=== PATIENT | female | born 1990 | race Caucasian/White ===

== ENCOUNTER 2017-01-08 10:51 | Emergency (ER) | payer OTHER ==
[2017-01-08 11:04] VITALS: BP 131/78; PULSE 92; O2SAT 97
--- NOTE | 2017-01-08 11:21 | ERPHSYRPT ---
- History of Present Illness Time Seen by Provider: 01/08/17 11:08 Source: patient Exam Limitations: no limitations Patient Subjective Stated Complaint: PT REPORTS FALLING ON SUNDAY-REPORTS LOW RIGHT SIDED BACK PAIN ET LEG PAIN-REPORTS PREVIOUS BACK INJURY Triage Nursing Assessment: PT PINK WARM ET DRY-A & O X 3-NO OBVIOUS INJURY-NO CONTUSIONS OR ABRASIONS Physician History: This is a 26-year-old white female with history of migraines, peripheral neuropathy, fibromyalgia, attention deficit disorder, depression, chronic back pain, cervical cancer, von Willebrand's disease. She arrives with complaint of pain in her back in her right knee after falling 4 days ago. She states she does not have any pain medications and is not taking any. She is not having urinary symptoms she complains of pain in the lateral right knee she also has pain in the right low back. Patient does have a history of chronic back pain. She is not otherwise ill. Past medical history includes migraines, peripheral neuropathy, fibromyalgia, attention deficit disorder, depression, chronic back pain, cervical cancer, von Willebrand's disease Past surgical history includes cholecystectomy, Timing/Duration: day(s) (4 days) Severity: moderate Modifying Factors: Improves With: nothing Associated Symptoms: No nausea, No vomiting, No abdominal pain, No shortness of breath, No heartburn, No diaphoresis, No cough, No chills, No chest pain, No fever, No headaches, No loss of appetite, No malaise, No rash, No syncope, No seizure, No weakness Allergies/Adverse Reactions: ibuprofen Allergy (Mild, Verified 01/08/17 11:04) promethazine HCl [From Phenergan] Allergy (Mild, Verified 01/08/17 11:04) tramadol HCl [From Ultram] Allergy (Mild, Verified 01/08/17 11:04) cyclobenzaprine HCl [From Flexeril] Adverse Reaction (Mild, Verified 01/08/17 11 :04) escitalopram oxalate [From Lexapro] Adverse Reaction (Mild, Verified 01/08/17 11 :04) fluoxetine HCl [From Prozac] Adverse Reaction (Mild, Verified 01/08/17 11:04) lidocaine Adverse Reaction (Mild, Verified 01/08/17 11:04) tizanidine HCl [From Zanaflex] Adverse Reaction (Mild, Verified 01/08/17 11:04) Home Medications: No Home Meds 1 ea UD 01/08/17 [History] Hx Tetanus, Diphtheria Vaccination/Date Given: Yes Hx Influenza Vaccination/Date Given: No Hx Pneumococcal Vaccination/Date Given: No Immunizations Up to Date: Yes - Review of Systems Constitutional: No Fever, No Chills Eyes: No Symptoms Ears, Nose, & Throat: No Symptoms Respiratory: No Cough, No Dyspnea Cardiac: No Chest Pain, No Edema, No Syncope Abdominal/Gastrointestinal: No Abdominal Pain, No Nausea, No Vomiting, No Diarrhea Genitourinary Symptoms: No Dysuria Musculoskeletal: Back Pain, Other (right lumbar pain right knee pain) Skin: No Rash Neurological: No Dizziness, No Focal Weakness, No Sensory Changes Psychological: No Symptoms Endocrine: No Symptoms All Other Systems: Reviewed and Negative - Past Medical History Pertinent Past Medical History: Yes Neurological History: Migraines, Peripheral Neuropathy ENT History: No Pertinent History Cardiac History: No Pertinent History Respiratory History: No Pertinent History Endocrine Medical History: No Pertinent History Musculoskeletal History: Fibromyalgia, Other GI Medical History: No Pertinent History History: No Pertinent History Psycho-Social History: Attention Deficit Disorder, Depression Other Medical History: chronic backpain,cervical ca,. VON WILLEN BREANDTS DISEASE - Past Surgical History Past Surgical History: Yes Neuro Surgical History: No Pertinent History Cardiac: No Pertinent History Respiratory: No Pertinent History Gastrointestinal: Cholecystectomy Female Surgical History: Section - Social History Smoking Status: Current every day smoker How long have you smoked: 5 Exposure to second hand smoke: Yes Drug Use: none Patient Lives Alone: No Significant Family History: no pertinent family hx - Female History Hx Last Menstrual Period: LAST WEEK - Nursing Vital Signs Nursing Vital Signs: Initial Vital Signs Temperature 98.4 F Temperature Source Oral Pulse Rate 92 Respiratory Rate 22 Blood Pressure [Right Arm] 131/78 Pain Intensity 8 - Physical Exam General Appearance: alert, No no apparent distress Eye Exam: PERRL/EOMI, eyes nml inspection Ears, Nose, Throat Exam: normal ENT inspection, TMs normal, pharynx normal, moist mucous membranes Neck Exam: normal inspection, non-tender, supple, full range of motion Respiratory Exam: normal breath sounds, lungs clear, No respiratory distress Cardiovascular Exam: regular rate/rhythm, normal heart sounds, normal peripheral pulses Gastrointestinal/Abdomen Exam: soft, normal bowel sounds, No tenderness, No mass Back Exam: other (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 able to sit with legs extended at knees and flex the hips without problems) Extremity Exam: other (right knee tender with palpation laterally pain with extension and flexion right knee) Neurologic Exam: alert, oriented x 3, cooperative, normal mood/affect, nml cerebellar function, nml station & gait, sensation nml, No motor deficits Skin Exam: normal color, warm, dry, No rash Lymphatic Exam: No adenopathy SpO2 Interpretation: normal (97%) SpO2: 97 Oxygen Delivery: Room Air - Course Nursing assessment & vital signs reviewed: Yes Ordered Tests: Active Orders 24 hr Category Date Time Status HCG QUALITATIVE,SERUM Stat Lab 01/08/17 11:13 Ordered - Progress Progress Note: 01/08/17 11:17 This is a 26-year-old white female with history of chronic back pain, migraines peripheral neuropathy fibromyalgia. Patient arrives with complaint of her low back and her right knee after falling 4 days ago. Patient states that she does not have any pain medications ,, she states that there was a glitch with her insurance and she has not received any pain medications for approximately a month and a half. Inspect the report is reviewed it is noted that the patient has received oxycodone as well as clonazepam on a regular basis from her family physician it appears as though the patient had received oxycodone 112 325/7.5 mg tablets on December 18, 2016 she had also received phentermine 37.5 mg #30 tablets on December 25, 2016 review of the patient's inspect report shows that she has been receiving clonazepam phentermine and oxycodone on a regular basis I discussed this with the patient marko I stated that I could not refill further narcotic analgesias for this patient but would be happy to obtain an hCG and afterwords could obtain x-ray of her back and her right knee. I did however offered patient Tylenol for pain she declined this. Shortly thereafter the the patient apparently decided that she would like to follow-up with her family doctor and her came out stated that she had talked to him on the phone and that he would be seeing her and she would like to be released so that she can follow up with him. Will go ahead and release patient 01/08/17 11:22 - Departure Time of Disposition: 11:21 Departure Disposition: Home Clinical Impression: Back pain Qualifiers: Back pain location: low back pain Chronicity: acute Back pain laterality: right Sciatica presence: without sciatica Qualified Code(s): M54.5 - Low back pain Chronic back pain Qualifiers: Back pain location: low back pain Back pain laterality: right Sciatica presence : unspecified whether sciatica present Qualified Code(s): M54.5 - Low back pain ; G89.29 - Other chronic pain Right knee pain Qualifiers: Chronicity: acute Qualified Code(s): M25.561 - Pain in right knee Accidental fall Qualifiers: Encounter type: initial encounter Qualified Code(s): W19.XXXA - Unspecified fall, initial encounter Condition: Fair Critical Care Time: No Additional Instructions: Return home. Cold packs to contused areas 24-48 hours. Pain medications as prescribed by your family doctor. Follow-up with your family doctor. Return for acute distress or for severe symptoms.
== END 2017-01-08 11:30 | disposition home or self-care (01) ==
LOC: ED 10:51
DX: M54.5 Low back pain (principal); M25.561 Pain in right knee; W19.XXXA Unspecified fall, initial encounter
CPT/HCPCS: 99282; 99283